=== PATIENT | male | born 1945 | race Caucasian/White ===

== ENCOUNTER → 2016-06-30 | Day surgery (SDC) | payer MEDICARE ==
[~2016-06-30] MED LIST: BUPIVACAINE HCL PF 0.75% 30 ML VIAL ONE; CIAL5TAB PO; HYZA100T2 PO; IBUP800T23 PO; IOHEXOL 180 MG/ML 20 ML VIAL (for RAD DIAG) EPIDURAL ONE; K-TA10TA PO; MULT1TAB85 PO; PROPOFOL 200 MG/20 ML AMP IV ONE; SIMV20TA PO; TRIAMCINOLONE ACETONIDE 40 MG/ML VIAL NB ONE
--- NOTE | 2016-06-30 09:03 | M6 ---
cc: LEAH PATRICIO M.D., JAMES R. D.O. MAYFIELD,BINTA Muniz M.D. Corrected Copy: 07/01/16 DATE 06/30/2016 DATE OF 1945 PROCEDURE Fluoroscopically guided injection L4-5 disc (images saved to the Radiology Department for Dr. Cheney's review). History and physical was completed and signed. Consent was signed. Procedure site was marked. Medications were listed and reconciled. Pain score was recorded. Allergies were noted. Time out was taken. Fluoroscopy time was recorded where applicable. Sedation was administered or directed by Dr. Gaston. The patient was given oxygen. The patient was monitored by a registered nurse. Total procedure time was greater than 15 minutes. PROCEDURE NOTE IV was started. Blood pressure cuff, pulse oximeter and EKG were applied. The patient was placed in the prone position on a Dmitri table. His back was prepped with alcohol and then Betadine and draped with sterile drapes. Strict aseptic technique was used including a mask and gloves and sterile drapes over the C-arm. Fluoroscopy was used in an oblique angle to clearly visualize the L4-5 disc with the superior articular process of L5 at the midpoint of the disk. The skin was infiltrated with 1% Xylocaine using a 27-gauge needle. Then a 19-gauge introducer needle was placed through the skin. Then a 6-inch, 22-gauge spinal needle was advanced through the introducer needle and directed just underneath or lateral to the superior articular process of L5 and into the L4-5 disc, 1 mL of Omnipaque dye was injected and seemed to spread throughout the disk. Then the patient was given 1.5 mL of Marcaine 0.75% which contained 20 mg of Kenalog. The needle and the introducer needle were removed. AP and lateral projections were saved to the Radiology Department. The patient was then taken to the recovery room. He will be evaluated immediately today before he leaves the facility and we will call the patient tomorrow to get further update W. MD SHELLEY Ramirez/JACKELIN /8:32 AM /9:38 AM
--- NOTE | 2016-06-30 13:04 | RADHPO ---
EXAM DATE/TIME: 06/30/2016 09:29 [facility] COMPARISON: No previous studies available for comparison. INDICATIONS: L4/5 Disc injection with pain management MEDICAL HISTORY: None. SURGICAL HISTORY: None. ENCOUNTER: Initial ACUITY: 1 day PAIN SCORE: Non-responsive. LOCATION: Lumbar spine FINDINGS: Contrast is noted within the L4-5 disc space. CONCLUSION: Contrast within the L4-5 disc space. Grayson Cunha MD on June 30, 2016 at 12:57 Board Certified Radiologist. This report was verified electronically.
== END | disposition home or self-care (01) ==
LOC: PHSDC 06:47
PROVIDERS: ATTEND Pain Medicine Interventional Pain Medicine
DX: M54.5 Low back pain (principal)
CPT/HCPCS: 62290; 72100; 99152; J3301; Q9965

== ENCOUNTER → 2016-08-13 | Day surgery (SDC) | payer MEDICARE ==
[~2016-08-13] MED LIST changes: -IOHEXOL 180 MG/ML 20 ML VIAL (for RAD DIAG) EPIDURAL ONE; +TRIAMCINOLONE ACETONIDE 40 MG/ML VIAL I-ARTICULR ONE; -TRIAMCINOLONE ACETONIDE 40 MG/ML VIAL NB ONE
--- NOTE | 2016-08-13 11:08 | M6 ---
cc: BINTA GASTON M.D., MARK DATE: 08/13/2016 DATE OF : 1945 PROCEDURE Fluoroscopically guided injection bilateral lumbar facet joints (bilateral L3-4, L4-5 and L5-S1 facet joints). ADDENDUM Mr. Reilly was originally referred to me by Dr. Jeffrey Cheney with a request to do an L4-5 disc block on the patient to determine if this might be his pain generator. On 06/30/2016 we injected the L4-5 disc with 1 mL of 0.75% Marcaine and 10 mg of Kenalog. We called the patient the next day and he reported that his pain had decreased down to a 1-2/10. He states that lasted a little over a week. The patient comes today now for us to perform fluoroscopically guided injection of his bilateral lumbar facet joints and compare the results. PROCEDURE NOTE History and physical was completed and signed. Consent was signed. Procedure site was marked. Medications were listed and reconciled. Pain score was recorded. Allergies were noted. Timeout was taken. Fluoroscopy time was recorded where applicable. Sedation was administered or directed by Dr. Gaston. The patient was given oxygen. The patient was monitored by a registered nurse. Total procedure time was greater than 15 minutes. An IV was started, blood pressure cuff, pulse oximeter and EKG were applied. The patient was placed in the prone position on a Dmitri table, sedated with small amounts of propofol titrated to effect. Vital signs were monitored and remained stable throughout the procedure. The lumbar area was prepped with alcohol and 10% Betadine solution, draped with sterile drapes. Fluoroscopy was used in a Mark dog view to clearly visualize the bilateral lumbar facet joints at L3-4, L4-5 and L5-S1. Separate sterile 3-1/2 inch, 25-gauge spinal needles were advanced down to these joints under fluoroscopic guidance. There was negative aspiration for blood or any other type of fluid and at each location the patient was given 1 mL of Marcaine 0.75% which contained 10 mg of Kenalog. Following the procedure the patient was taken to the recovery room with stable vital signs, neurologically intact. We will evaluate the patient immediately today. We will call the patient tomorrow and we will follow-up with the patient in approximately 2 weeks. W. MD FRANKI Ramirez /8:49 AM /11:02 AM
== END | disposition home or self-care (01) ==
LOC: PHSDC 06:39
PROVIDERS: ATTEND Pain Medicine Interventional Pain Medicine
DX: M54.5 Low back pain (principal)
CPT/HCPCS: 64493; 64494; 64495; 99152; J3301

== ENCOUNTER → 2016-10-10 | Day surgery (SDC) | payer MEDICARE ==
[~2016-10-10] MED LIST changes: +BUPIVACAINE HCL PF 0.5% 30 ML VIAL ONE; -BUPIVACAINE HCL PF 0.75% 30 ML VIAL ONE; +methylPREDNISolone ACETATE 40 MG/ML VIAL I-ARTICULR ONE
--- NOTE | 2016-10-14 13:06 | M6 ---
cc: BINTA GASTON M.D. DATE 10/10/2016 DATE OF 1945 PROCEDURE Fluoroscopically guided injection bilateral sacroiliac joints PROCEDURE NOTE History and physical was completed and signed. Consent was signed. Procedure site was marked. Medications were listed and reconciled. Pain score was recorded. Allergies were noted. Time out was taken. Fluoroscopy time was recorded where applicable. Sedation was administered or directed by Dr. Gaston. The patient was given oxygen. The patient was monitored by a registered nurse. Total procedure time was greater than 15 minutes. IV was started, blood pressure cuff, pulse oximeter and EKG were applied. The patient was placed in the prone position on a Dmitri table, sedated with small amounts of propofol titrated to effect. Vital signs were monitored and remained stable throughout the procedure. The sacral area was prepped with alcohol and 10% Betadine solution, draped with sterile drapes. Fluoroscopy was used shooting from medial to lateral to clearly visualize the posterior joint line of the bilateral sacroiliac joints. Separate sterile 5-inch 22-gauge spinal needles were advanced into these joints under fluoroscopic guidance. There was negative aspiration for blood or any other type of fluid and the patient was given 2 mL of 0.5% Marcaine, 20 mg of Depo-Medrol and, 20 mg of Kenalog at each location. Following this, the patient was taken to the recovery room with stable vital signs neurologically intact. He will be evaluated immediately and with followup to determine if he has a subjective decrease in his usual pain and a corresponding objective increase in his functional capabilities. WMD SHELLEY Jacques/TERESO /10:33 AM /1:03 PM
== END | disposition home or self-care (01) ==
LOC: PHSDC 08:21
PROVIDERS: ATTEND Pain Medicine Interventional Pain Medicine
DX: M54.5 Low back pain (principal)
CPT/HCPCS: 99152; G0260; J1030; J3301; 27096